=== PATIENT | female | born 1965 | race Hispanic/Latino ===

== ENCOUNTER 2018-03-01 07:39 | Emergency (ER) | payer BC ==
[2018-03-01] MEDS ORDERED: NORCO 10/325 PO ONE (09:44)
[2018-03-01] MEDS ORDERED: ZOFRAN ODT PO ONE (09:45)
--- NOTE | 2018-03-01 09:50 | Emergency Department Report ---
ED ENT HPI - General Chief complaint: Dental/Oral Stated complaint: LEFT SIDED FACIAL PAIN Time Seen by Provider: 03/01/18 09:25 Source: patient Mode of arrival: Ambulatory Limitations: No Limitations - Related Data Home Medications Medication Instructions Recorded Confirmed Last Taken Atenolol [Tenormin] 50 mg PO DAILY 03/08/14 03/08/14 03/07/14 Carisoprodol [Soma] 350 mg PO DAILY PRN 03/08/14 03/08/14 Unknown Diazepam [Valium] 10 mg PO DAILY PRN 03/08/14 03/08/14 03/06/14 Fenofibrate [Lofibra] 160 mg PO QDAY 03/08/14 03/08/14 03/07/14 Lisinopril [Zestril TAB] 20 mg PO QDAY 03/08/14 03/08/14 03/07/14 Oxycodone HCl/Acetaminophen 1 each PO Q6HR PRN 03/08/14 03/08/14 03/07/14 [Percocet 10/325 mg] Pantoprazole [Protonix TAB] 40 mg PO QDAY 03/08/14 03/08/14 03/07/14 Pravastatin [Pravachol] 40 mg PO DAILY 03/08/14 03/08/14 03/07/14 09:00 Sertraline [Zoloft] 200 mg PO DAILY 03/08/14 03/08/14 03/07/14 Sucralfate [Carafate] 1 gm PO DAILY PRN 03/08/14 03/08/14 Unknown Previous Rx's Medication Instructions Recorded Last Taken Type Aspirin [Aspirin BABY CHEW TAB] 81 mg PO QDAY #30 tab.chew 03/09/14 Unknown Rx Butalb/Acetamin/Caff 50-325-40 2 tab PO Q4H PRN #20 tablet 03/09/14 Unknown Rx [Fioricet] chlordiazePOXIDE/CLIDINIUM [Librax] 1 cap PO TID PRN #60 cap 03/09/14 Unknown Rx Clindamycin [Clindamycin CAP] 150 mg PO Q6HR #63 capsule 03/01/18 Unknown Rx HYDROcodone/APAP 5-325 [[place] 1 each PO Q6HR PRN #12 tablet 03/01/18 Unknown Rx 5/325] Allergies Allergy/AdvReac Type Severity Reaction Status Date / Time No Known Allergies Allergy Verified 03/07/14 19:39 ED Dental HPI - General Chief complaint: Dental/Oral Stated complaint: LEFT SIDED FACIAL PAIN Time Seen by Provider: 03/01/18 09:25 Source: patient Mode of arrival: Ambulatory Limitations: No Limitations - History of Present Illness Initial comments: Patient presents to emergency department with chief complaint of left lower toothache. Patient was seen by dentist on December 10 of this year and had an extraction done but now the tooth next to it is hurting. Patient had antibiotic called in by her dentist but is still a significant amount of pain. MD complaint: tooth pain -: Gradual Severity: moderate Quality: constant Consistency: constant Improves with: none Worsens with: hot/cold liquids Context- Dental: history of dental caries, poor dental care Dental Associated Symptons: Yes: Earache - Related Data Home Medications Medication Instructions Recorded Confirmed Last Taken Atenolol [Tenormin] 50 mg PO DAILY 03/08/14 03/08/14 03/07/14 Carisoprodol [Soma] 350 mg PO DAILY PRN 03/08/14 03/08/14 Unknown Diazepam [Valium] 10 mg PO DAILY PRN 03/08/14 03/08/14 03/06/14 Fenofibrate [Lofibra] 160 mg PO QDAY 03/08/14 03/08/14 03/07/14 Lisinopril [Zestril TAB] 20 mg PO QDAY 03/08/14 03/08/14 03/07/14 Oxycodone HCl/Acetaminophen 1 each PO Q6HR PRN 03/08/14 03/08/14 03/07/14 [Percocet 10/325 mg] Pantoprazole [Protonix TAB] 40 mg PO QDAY 03/08/14 03/08/14 03/07/14 Pravastatin [Pravachol] 40 mg PO DAILY 03/08/14 03/08/14 03/07/14 09:00 Sertraline [Zoloft] 200 mg PO DAILY 03/08/14 03/08/14 03/07/14 Sucralfate [Carafate] 1 gm PO DAILY PRN 03/08/14 03/08/14 Unknown Previous Rx's Medication Instructions Recorded Last Taken Type Aspirin [Aspirin BABY CHEW TAB] 81 mg PO QDAY #30 tab.chew 03/09/14 Unknown Rx Butalb/Acetamin/Caff 50-325-40 2 tab PO Q4H PRN #20 tablet 03/09/14 Unknown Rx [Fioricet] chlordiazePOXIDE/CLIDINIUM [Librax] 1 cap PO TID PRN #60 cap 03/09/14 Unknown Rx Clindamycin [Clindamycin CAP] 150 mg PO Q6HR #63 capsule 03/01/18 Unknown Rx HYDROcodone/APAP 5-325 [[place] 1 each PO Q6HR PRN #12 tablet 03/01/18 Unknown Rx 5/325] Allergies Allergy/AdvReac Type Severity Reaction Status Date / Time No Known Allergies Allergy Verified 03/07/14 19:39 ED Review of Systems ROS: Stated complaint: LEFT SIDED FACIAL PAIN Other details as noted in HPI Constitutional: denies: chills, fever Eyes: denies: eye pain, eye discharge, vision change ENT: other (Dental pain). denies: ear pain, throat pain Respiratory: denies: cough, shortness of breath, wheezing Cardiovascular: denies: chest pain, palpitations Endocrine: no symptoms reported Gastrointestinal: denies: abdominal pain, nausea, diarrhea Genitourinary: denies: urgency, dysuria, discharge Musculoskeletal: denies: back pain, joint swelling, arthralgia Skin: denies: rash, lesions Neurological: denies: headache, weakness, paresthesias Psychiatric: denies: anxiety, depression Hematological/Lymphatic: denies: easy bleeding, easy bruising ED Past Medical Hx - Past Medical History Hx Hypertension: Yes Hx GERD: Yes Additional medical history: elevated triglycerides. neck spurs. hiatal hernia - Surgical History Additional Surgical History: x2. left kidney surgery x4 for kidney stones. carpal tunnel surgery-right wrist - Social History Smoking Status: Current Every Day Smoker Substance Use Type: None - Medications Home Medications: Home Medications Medication Instructions Recorded Confirmed Last Taken Type Atenolol [Tenormin] 50 mg PO DAILY 03/08/14 03/08/14 03/07/14 History Carisoprodol [Soma] 350 mg PO DAILY PRN 03/08/14 03/08/14 Unknown History Diazepam [Valium] 10 mg PO DAILY PRN 03/08/14 03/08/14 03/06/14 History Fenofibrate [Lofibra] 160 mg PO QDAY 03/08/14 03/08/14 03/07/14 History Lisinopril [Zestril TAB] 20 mg PO QDAY 03/08/14 03/08/14 03/07/14 History Oxycodone HCl/Acetaminophen 1 each PO Q6HR PRN 03/08/14 03/08/14 03/07/14 History [Percocet 10/325 mg] Pantoprazole [Protonix TAB] 40 mg PO QDAY 03/08/14 03/08/14 03/07/14 History Pravastatin [Pravachol] 40 mg PO DAILY 03/08/14 03/08/14 03/07/14 09:00 History Sertraline [Zoloft] 200 mg PO DAILY 03/08/14 03/08/14 03/07/14 History Sucralfate [Carafate] 1 gm PO DAILY PRN 03/08/14 03/08/14 Unknown History Aspirin [Aspirin BABY CHEW TAB] 81 mg PO QDAY #30 tab.chew 03/09/14 Unknown Rx Butalb/Acetamin/Caff 50-325-40 2 tab PO Q4H PRN #20 tablet 03/09/14 Unknown Rx [Fioricet] chlordiazePOXIDE/CLIDINIUM [Librax] 1 cap PO TID PRN #60 cap 03/09/14 Unknown Rx Clindamycin [Clindamycin CAP] 150 mg PO Q6HR #63 capsule 03/01/18 Unknown Rx HYDROcodone/APAP 5-325 [[place] 1 each PO Q6HR PRN #12 tablet 03/01/18 Unknown Rx 5/325] ED Physical Exam - General Limitations: No Limitations General appearance: alert, in no apparent distress - Head Head exam: Present: atraumatic, normocephalic - Eye Eye exam: Present: normal appearance - ENT ENT exam: Present: other (dental caries) - Neck Neck exam: Present: normal inspection - Respiratory Respiratory exam: Present: normal lung sounds bilaterally. Absent: respiratory distress - Cardiovascular Cardiovascular Exam: Present: regular rate, normal rhythm. Absent: systolic murmur, diastolic murmur, rubs, gallop - GI/Abdominal GI/Abdominal exam: Present: soft, normal bowel sounds - Extremities Exam Extremities exam: Present: normal inspection - Back Exam Back exam: Present: normal inspection - Neurological Exam Neurological exam: Present: alert, oriented X3 - Psychiatric Psychiatric exam: Present: normal affect, normal mood - Skin Skin exam: Present: warm, dry, intact, normal color. Absent: rash ED Course Vital Signs 03/01/18 03/01/18 07:58 09:27 Temperature 98.7 F Pulse Rate 99 H Respiratory 20 17 Rate O2 Sat by Pulse 98 Oximetry ED Medical Decision Making - Medical Decision Making Discussed plan of care Patient states she takes Oxycodone at home and declines the [place] Critical care attestation.: If time is entered above; I have spent that time in minutes in the direct care of this critically ill patient, excluding procedure time. ED Disposition Clinical Impression: Toothache Disposition: DC- TO HOME OR SELFCARE Is pt being admited?: No Does the pt Need Aspirin: No Condition: Stable Instructions: Toothache (ED) Prescriptions: Clindamycin [Clindamycin CAP] 150 mg PO Q6HR #63 capsule HYDROcodone/APAP 5-325 [[place] 5/325] 1 each PO Q6HR PRN #12 tablet PRN Reason: Pain Referrals: PRIMARY CARE, [Primary Care Provider] - 3-5 Days [facility] [Outside] - 3-5 Days Time of Disposition: 09:51
== END 2018-03-01 09:59 | disposition home or self-care (01) ==
LOC: ED 07:39
DX: K08.89 Other specified disorders of teeth and supporting structures (principal); I10 Essential (primary) hypertension; K21.9 Gastro-esophageal reflux disease without esophagitis; F17.200 Nicotine dependence, unspecified, uncomplicated; Z79.82 Long term (current) use of aspirin
CPT/HCPCS: 99282; Q0162